=== PATIENT | male | born 1935 | race Caucasian/White ===

== ENCOUNTER 2017-11-06 19:51 | Observation (INO) | payer BC, MEDICARE ==
[~2017-11-06] VITALS: Ht 177.8 cm; Wt 108.0 kg
[~2017-11-06 19:51] MED LIST: ASPI81 PO; CENTTAB9 PO; CHEL50TA PO; COQ-100C5 PO; MISC1TAB9 PO; NIAC500T18 PO; PRIL20CA PO; SIMV20TA PO; TOPR50TA PO; VITA400C28 PO
[2017-11-06 19:56] VITALS: BP 126/72; PULSE 82; RESP 16; TEMP 98.1; O2SAT 97
[2017-11-06] MEDS ORDERED: OMEP20TA93 PO (20:07)
[2017-11-06] MEDS ORDERED: CENTCHW4 CHEW (20:07)
[2017-11-06] MEDS ORDERED: GLUC1TAB44 (20:07)
[2017-11-06] MEDS ORDERED: METO25TA3 PO (20:07)
[2017-11-06] MEDS ORDERED: CO Q100C9 (20:07)
[2017-11-06] MEDS ORDERED: OMEGCAP PO (20:07)
[2017-11-06] MEDS ORDERED: ATOR40TA16 PO (20:07)
[2017-11-06] MEDS ORDERED: ZINC30TA PO (20:07)
[2017-11-06] MEDS ORDERED: ASPI-516 CHEW (20:07)
[2017-11-06] MEDS ORDERED: METOPROLOL TARTRATE 25 MG TAB PO ONE (20:15)
[2017-11-06] MEDS ORDERED: SODIUM CHLORID 0.9% 500 ML INJ 500 ML IV ONE (20:15)
[2017-11-06] MEDS ORDERED: ACETAMINOPHEN 325 MG TAB PO ONE (20:15)
[2017-11-06 20:50] LABS: AUTOMATED NEUTROPHIL # 8.7 TH/MM3 (1.8-7.7); BASOPHIL % 0.2 % (0.0-2.0); EOSINOPHIL # 0.2 TH/MM3 (0-0.4); EOSINOPHIL % 2.3 % (0.0-4.0); HEMATOCRIT 46.2 % (39.0-51.0); LYMPH % 6.3 % (9.0-44.0); LYMPHOCYTE # 0.6 TH/MM3 (1.0-4.8); MEAN CELL VOLUME 84.6 FL (80.0-100.0); MEAN CORPUSCULAR HEMOGLOBIN 29.3 PG (27.0-34.0); MEAN CORPUSCULAR HGB CONC 34.6 % (32.0-36.0); MONO % 5.6 % (0.0-8.0); MONOCYTE # 0.6 TH/MM3 (0-0.9); NEUT % 85.6 % (16.0-70.0); PLATELET COUNT 176 TH/MM3 (150-450); RED BLOOD COUNT 5.47 MIL/MM3 (4.50-5.90); RED CELL DISTRIBUTION WIDTH 14.1 % (11.6-17.2); WHITE BLOOD COUNT 10.2 TH/MM3 (4.0-11.0)
[2017-11-06 21:00] VITALS: BP 107/61; PULSE 76; RESP 16; O2SAT 96
[2017-11-06] MEDS ORDERED: PANTOPRAZOLE SODIUM 40 MG VIAL IV PUSH ONE (21:00)
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
--- NOTE | 2017-11-06 21:26 | RADRPT ---
EXAM DATE/TIME: 11/06/2017 20:46 [place] COMPARISON: No previous studies available for comparison. INDICATIONS : Chest pain. MEDICAL HISTORY : None. SURGICAL HISTORY : None. ENCOUNTER: Initial ACUITY: 1 day PAIN SCORE: 1/10 LOCATION: Bilateral chest FINDINGS: A single view of the chest demonstrates minimal subsegmental basilar airspace disease. Cardiomegaly. No effusion. No pneumothorax. CONCLUSION: 1. Mild basilar airspace disease which may represent atelectasis. No effusion or pneumothorax. Lisandro Blood MD on November 06, 2017 at 21:23 Board Certified Radiologist. This report was verified electronically.
--- NOTE | 2017-11-06 21:40 | EKG ---
Date Performed: 11/06/2017 Time Performed: 19:58:41 PTAGE: 82 years EKG: Marked baseline artifact PROBABLE Normal Sinus rhythm LOW QRS VOLTAGE IN PRECORDIAL LEADS POSSIBLE ANTERIOR MYOCARDIAL INFARCTION INFERIOR MYOCARDIAL INFA RCTION ABNORMAL ECG Would repeat EKG. DOCTOR: Samuel Dennis Interpretating Date/Time 11/06/2017 21:39:26
[2017-11-06 21:54] LABS: ALBUMIN 3.6 GM/DL (3.4-5.0); ALT (GPT) 24 U/L (12-78); AST (GOT) 22 U/L (15-37); BICARBONATE 22.3 MEQ/L (21.0-32.0); BLOOD UREA NITROGEN 16 MG/DL (7-18); CALCIUM 8.3 MG/DL (8.5-10.1); CHLORIDE 107 MEQ/L (98-107); CREATININE 0.97 MG/DL (0.60-1.30); GLOMERULAR FILTRATION RATE 74 ML/MIN (>89); GLUCOSE,RANDOM 99 MG/DL (74-106); SODIUM (NA) 138 MEQ/L (136-145)
[2017-11-06 21:59] LABS: ALKALINE PHOSPHATASE 102 U/L (45-117); TOTAL BILIRUBIN ADULT 0.9 MG/DL (0.2-1.0); TOTAL PROTEIN 7.5 GM/DL (6.4-8.2); TROPONIN I LESS THAN 0.02 NG/ML (0.02-0.05)
[2017-11-06 23:00] VITALS: BP 108/59; PULSE 66; RESP 16; O2SAT 94
[2017-11-06] MEDS ORDERED: SODIUM CHLORIDE 0.9% FLUSH 10 ML FLUSH IV FLUSH PRN (23:00)
[2017-11-07] VITALS (11 sets, daily range): BP systolic 106–146; BP diastolic 56–67; PULSE 61–72; RESP 16–20; TEMP 98.2–98.6; O2SAT 93–98
[2017-11-07 02:39] LABS: TROPONIN I LESS THAN 0.02 NG/ML (0.02-0.05)
[2017-11-07 09:00] LABS: TROPONIN I LESS THAN 0.02 NG/ML (0.02-0.05)
[2017-11-07] MEDS ORDERED: SODIUM CHLORIDE 0.9% FLUSH 10 ML FLUSH IV FLUSH SCH (09:00)
--- NOTE | 2017-11-07 10:37 | EKG ---
Date Performed: 11/07/2017 Time Performed: 02:41:21 PTAGE: 82 years EKG: Sinus rhythm LOW QRS VOLTAGE IN PRECORDIAL LEADS POSSIBLE ANTERIOR MYOCARDIAL INFARCTION INFERIOR MYOCARDIAL INFA RCTION ABNORMAL ECG No significant change NO PREVIOUS TRACING DOCTOR: Ryan Barney Interpretating Date/Time 11/11/2017 07:05:29
[2017-11-07] MEDS ORDERED: SODIUM CHLOR 0.9% 1000 ML INJ 1,000 ML IV SCH (10:39)
--- NOTE | 2017-11-07 10:39 | EKG ---
Date Performed: 11/06/2017 Time Performed: 20:51:51 PTAGE: 82 years EKG: Sinus rhythm WITH OCCASIONAL VENTRICULAR PREMATURE COMPLEXES LOW QRS VOLTAGE IN PRECORDIAL LEADS POSSIBLE ANTERIO R MYOCARDIAL INFARCTION INFERIOR MYOCARDIAL INFARCTION ABNORMAL ECG No significant change other than loss of baseline artifact PREVIOUS TRACING : 11/09/2009 08.57 DOCTOR: Ryan Barney Interpretating Date/Time 11/07/2017 10:37:42
--- NOTE | 2017-11-07 10:51 | HHI.HP ---
HPI Primary Care Physician No Primary Care Physician Chief Complaint Chest pain History of Present Illness This is an 82-year-old male with history of CAD, hypertension, hyperlipidemia, and GERD that presents to ED with the complaint of chest discomfort. Patient states that he developed a heaviness in the center of his chest while doing some shopping with his . He was short of breath with some mild nausea. No diaphoresis. There is a 3 out of 10. It lasted about 4 hours. He was brought to the ED via [facility]. He was given sublingual nitroglycerin spray which helped a little bit but did not resolve the symptoms. States it is somewhat similar to when eating stents however this discomfort is nowhere near as intense. Patient also states that for the past week and a half he has had a yellowish color productive cough. No fever. No recent travel. He has not seen a local PCP for this. His internal combustion engine subassembler is Dr. Miguel Angel Soto. He has not discussed this with Dr. Miguel Angel Soto. States that he has had at least 8 watery bowel movements since being in the ED. This is actually his main concern at this time. States he is afraid to fall sleep, states the watery stool coming out when he is sleeping as well. Denies sick contacts. Denies blood in stool. 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 Review of Systems General: Patient denies fevers, chills, and recent travel. HEENT: Patient denies headache, sore throat, difficulty swallowing. Cardiovascular: Has the chest discomfort as mentioned above. Denies sensation of heart beating rapidly or irregularly. No syncope. Denies diaphoresis. Respiratory: Denies shortness of breath or inspirational chest discomfort. Denies coughing wheezing or hemoptysis. GI: Mild nausea yesterday. He has had multiple watery bowel movements since being in the ED last evening and this morning. Patient denies vomiting, abdominal pain, and bloody stools. Musculoskeletal: Patient denies joint pain or edema. Denies calf pain or edema. Neurovascular: Patient denies numbness, tingling, weakness in extremities. Denies headache. Endocrine: Denies polyuria and polydipsia. Hematologic: Denies easy bruising. Skin: Denies rash or itching. Past Family Social History Allergies: Coded Allergies: adenosine (Unverified Allergy, Severe, 11/06/17) ibuprofen (Unverified Allergy, Unknown, 11/06/17) Past Medical History CAD with stents. Hypertension, hyperlipidemia, and GERD. Past Surgical History Multiple cardiac catheterizations with stents in the past. No recent cardiac catheterization. Tonsillectomy. Reported Medications Reported Meds & Active Scripts Active Reported Osteo Bi-Flex Tablet (Glucosamine/D3/Boswellia Dorothy) 1,500 Mg-400 Unit-100 Mg Tablet Zinc Gluconate 30 Mg Tab 30 Mg PO DAILY [place]-3 Fish Oil/Vitamin (Fish Oil-Cholecalciferol) 1,000-1,000 Mg Cap 1 Cap PO DAILY Co Q 10 (Coenzyme Q10 (Ubidecarenone)) 100 Mg-5 Unit Cap Centrum (Multiple Vitamins W/ Minerals) 1 Chew 1 Tab CHEW DAILY Aspirin 81 Mg Chew 81 Mg CHEW DAILY Omeprazole 20 Mg Tab 20 Mg PO DAILY Metoprolol Tartrate 25 Mg Tab 25 Mg PO DAILY Atorvastatin (Atorvastatin Calcium) 40 Mg Tab 40 Mg PO HS Active Ordered Medications Current Medications Medications (Trade) Dose Ordered Sig/Abigail Route Start Time Stop Time Status Last Admin (NS Flush) 2 ml UNSCH PRN IV FLUSH 11/06/17 23:00 (NS Flush) 2 ml BID IV FLUSH 11/07/17 09:00 11/07/17 09:43 Sodium Chloride 1,000 ml @ 80 mls/hr [id number] IV 11/07/17 10:39 11/07/17 23:08 UNV Family History There is family history of CAD. Social History Quit smoking 40 years ago. Physical Exam Vital Signs Vital Signs Date Time Temp Pulse Resp B/P (MAP) Pulse Ox O2 Delivery O2 Flow Rate FiO2 11/07/17 08:34 72 18 142/67 (92) 96 Room Air 11/07/17 04:00 66 16 106/62 (77) 96 Room Air 11/07/17 02:00 68 16 108/60 (76) 96 Room Air 11/07/17 01:00 68 16 106/62 (77) 96 Room Air 11/06/17 23:44 21 11/06/17 23:00 66 16 108/59 (75) 94 Room Air 11/06/17 21:00 76 16 107/61 (76) 96 Room Air 11/06/17 19:56 98.1 82 16 126/72 (90) 97 Physical Exam GENERAL: This is a well-nourished, well-developed patient, in no apparent distress. Patient speaks in clear complete sentences. Patient is pleasant. HEENT: Head is atraumatic and normocephalic. Neck is supple without lymphadenopathy and trachea is midline. No JVD or carotid bruits. CARDIOVASCULAR: Regular rate and rhythm without murmurs, gallops, or rubs. RESPIRATORY: Mild expiratory wheeze on the right base. Clear to auscultation. Breath sounds equal bilaterally. No rales, or rhonchi. Chest wall is nontender. No use of accessory muscles. GASTROINTESTINAL: Some generalized abdominal tenderness but no guarding or rebound. Abdomen is nondistended. Abdomen soft. No obvious pulsatile mass or bruit. No CVA tenderness. Strong femoral pulses bilaterally. Normal bowel sounds in all quadrants. MUSCULOSKELETAL: Patient is moving upper and lower extremities freely. No calf tenderness or edema, no Homans sign. Strong pulses in upper and lower extremities. NEUROLOGICAL: Patient is alert and oriented. Cranial nerves 2-12 are grossly intact. No focal deficits and speech is clear. SKIN: No rash and turgor is normal. Laboratory Laboratory Tests Test 11/06/17 20:16 11/06/17 21:18 11/07/17 02:00 11/07/17 08:00 White Blood Count 10.2 Red Blood Count 5.47 Hemoglobin 16.0 Hematocrit 46.2 Mean Corpuscular Volume 84.6 Mean Corpuscular Hemoglobin 29.3 Mean Corpuscular Hemoglobin Concent 34.6 Red Cell Distribution Width 14.1 Platelet Count 176 Mean Platelet Volume 7.0 Neutrophils (%) (Auto) 85.6 Lymphocytes (%) (Auto) 6.3 Monocytes (%) (Auto) 5.6 Eosinophils (%) (Auto) 2.3 Basophils (%) (Auto) 0.2 Neutrophils # (Auto) 8.7 Lymphocytes # (Auto) 0.6 Monocytes # (Auto) 0.6 Eosinophils # (Auto) 0.2 Basophils # (Auto) 0.0 CBC Comment DIFF FINAL Differential Comment Blood Urea Nitrogen 16 Creatinine 0.97 Random Glucose 99 Total Protein 7.5 Albumin 3.6 Calcium Level 8.3 Magnesium Level 2.0 Alkaline Phosphatase 102 Aspartate Amino Transf (AST/SGOT) 22 Alanine Aminotransferase (ALT/SGPT) 24 Total Bilirubin 0.9 Sodium Level 138 Potassium Level 4.5 4.2 Chloride Level 107 Carbon Dioxide Level 22.3 Anion Gap 9 Estimat Glomerular Filtration Rate 74 Total Creatine Kinase 102 78 77 Creatine Kinase MB 1.7 Troponin I LESS THAN 0.02 LESS THAN 0.02 LESS THAN 0.02 Lipase 112 Result Diagram: 11/06/17201511/07/17 0800 Imaging Last 48 hours Impressions Chest X-Ray 11/06/172010 Signed Impressions: Service Date/Time: Monday, November 06, 2017 20:46 - CONCLUSION: 1. Mild basilar airspace disease which may represent atelectasis. No effusion or pneumothorax. Lisandro Blood MD Course EKGs are sinus rhythm without significant ST segment depressions or elevations. Caprini VTE Risk Assessment Caprini VTE Risk Assessment: Mod/High Risk (score >= 2) Caprini Risk Assessment Model Point Value = 1 Point Value = 2 Point Value = 3 Point Value = 5 Age 41-60 Minor surgery BMI > 25 kg/m2 Swollen legs Varicose veins or History of unexplained or recurrent spontaneous Oral contraceptives or hormone replacement Sepsis (< 1 month) Serious lung disease, including pneumonia (< 1 month) Abnormal pulmonary function Acute myocardial infarction Congestive heart failure (< 1 month) History of inflammatory bowel disease Medical patient at bed rest Age 61-74 Arthroscopic surgery Major open surgery (> 45 min) Laparoscopic surgery (> 45 min) Malignancy Confined to bed (> 72 hours) Immobilizing plaster cast Central venous access Age >= 75 History of VTE Family history of VTE Factor V Leiden Prothrombin [id number] Lupus anticoagulant Anticardiolipin antibodies Elevated serum homocysteine Heparin-induced thrombocytopenia Other congenital or acquired thrombophilia Stroke (< 1 month) Elective arthroplasty Hip, pelvis, or leg fracture Acute spinal cord injury (< 1 month) Prophylaxis Regimen Total Risk Factor Score Risk Level Prophylaxis Regimen 0-1 Low Early ambulation 2 Moderate Order ONE of the following: *Sequential Compression Device (SCD) *Heparin 5000 units SQ BID 3-4 Higher Order ONE of the following medications: *Heparin 5000 units SQ TID *Enoxaparin/Lovenox 40 mg SQ daily (WT < 150 kg, CrCl > 30 mL/min) *Enoxaparin/Lovenox 30 mg SQ daily (WT < 150 kg, CrCl > 10-29 mL/min) *Enoxaparin/Lovenox 30 mg SQ BID (WT < 150 kg, CrCl > 30 mL/min) AND/OR *Sequential Compression Device (SCD) 5 or more Highest Order ONE of the following medications: *Heparin 5000 units SQ TID (Preferred with Epidurals) *Enoxaparin/Lovenox 40 mg SQ daily (WT < 150 kg, CrCl > 30 mL/min) *Enoxaparin/Lovenox 30 mg SQ daily (WT < 150 kg, CrCl > 10-29 mL/min) *Enoxaparin/Lovenox 30 mg SQ BID (WT < 150 kg, CrCl > 30 mL/min) AND *Sequential Compression Device (SCD) Assessment and Plan Assessment and Plan * Chest pain: Patient has had serial cardiac enzymes and EKGs for ruling out purposes. He was seen by Dr. Barney at this time. Patient's main complaint at this time is actually diarrhea. He has had 8-10 watery bowel movements and has even had episodes of stool incontinence. Patient will need to be admitted for his uncontrollable diarrhea and if further cardiac evaluation is warranted his internal combustion engine subassembler Dr. Miguel Angel Soto could be consulted. * Diarrhea: Patient has had uncontrollable diarrhea. We will check for Hemoccult stool and also C. difficile. Further evaluation per admitting team. I have spoken with Dr. Delacruz. He has requested consultation be placed into Dr. Miguel Angel Soto. * Hypertension: Continue medication. * Hyperlipidemia: Continue medication. Patient is agreeable to this plan. Jarred Wheeler Nov 07, 2017 10:51
--- NOTE | 2017-11-07 10:53 | PD.CARD.PN ---
Subjective Subjective Remarks 82-year-old gentleman with a known history of coronary artery disease having had 3 stents placed in the right coronary artery in the distant past in 1989 [id number]. This was carried out in [place]. He is followed routinely by Dr. Soto locally with exercise stress test done on a yearly basis. 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 He is having 8-10 watery bowel movements a day including fecal incontinence. He is wearing a diaper and afraid to go to sleep because he is incontinent when he does. He also has some slight nausea with this and a diffuse sense of prostration. He has had a cough and some bronchitis over the last 2 weeks but no prior GI issues. Objective Medications Current Medications Medications (Trade) Dose Ordered Sig/Abigail Route Start Time Stop Time Status Last Admin (NS Flush) 2 ml UNSCH PRN IV FLUSH 11/06/17 23:00 (NS Flush) 2 ml BID IV FLUSH 11/07/17 09:00 11/07/17 09:43 Sodium Chloride 1,000 ml @ 80 mls/hr [id number] IV 11/07/17 10:39 11/07/17 23:08 UNV Vital Signs / I&O Vital Signs Date Time Temp Pulse Resp B/P (MAP) Pulse Ox O2 Delivery O2 Flow Rate FiO2 11/07/17 08:34 72 18 142/67 (92) 96 Room Air 11/07/17 04:00 66 16 106/62 (77) 96 Room Air 11/07/17 02:00 68 16 108/60 (76) 96 Room Air 11/07/17 01:00 68 16 106/62 (77) 96 Room Air 11/06/17 23:44 21 11/06/17 23:00 66 16 108/59 (75) 94 Room Air 11/06/17 21:00 76 16 107/61 (76) 96 Room Air 11/06/17 19:56 98.1 82 16 126/72 (90) 97 I/O 11/06/17 11/06/17 11/06/17 11/07/1722/18 3/22/18 06:59 14:59 22:59 06:59 14:59 22:59 Intake Total 500 ml Balance 500 ml Intake IV Total 500 ml Physical Exam Skin turgor appears to be diminished There is no JVD Chest reveals mild bibasilar crackles but no wheezes or rhonchi Cardiac rhythm appears to be regular no gallop rub or murmurs noted heart sounds are distant The abdomen is soft nontender with no guarding or rebound Laboratory Laboratory Tests Test 11/06/17 20:16 11/06/17 21:18 11/07/17 02:00 11/07/17 08:00 White Blood Count 10.2 TH/MM3 Red Blood Count 5.47 MIL/MM3 Hemoglobin 16.0 GM/DL Hematocrit 46.2 % Mean Corpuscular Volume 84.6 FL Mean Corpuscular Hemoglobin 29.3 PG Mean Corpuscular Hemoglobin Concent 34.6 % Red Cell Distribution Width 14.1 % Platelet Count 176 TH/MM3 Mean Platelet Volume 7.0 FL Neutrophils (%) (Auto) 85.6 % Lymphocytes (%) (Auto) 6.3 % Monocytes (%) (Auto) 5.6 % Eosinophils (%) (Auto) 2.3 % Basophils (%) (Auto) 0.2 % Neutrophils # (Auto) 8.7 TH/MM3 Lymphocytes # (Auto) 0.6 TH/MM3 Monocytes # (Auto) 0.6 TH/MM3 Eosinophils # (Auto) 0.2 TH/MM3 Basophils # (Auto) 0.0 TH/MM3 CBC Comment DIFF FINAL Differential Comment Blood Urea Nitrogen 16 MG/DL Creatinine 0.97 MG/DL Random Glucose 99 MG/DL Total Protein 7.5 GM/DL Albumin 3.6 GM/DL Calcium Level 8.3 MG/DL Magnesium Level 2.0 MG/DL Alkaline Phosphatase 102 U/L Aspartate Amino Transf (AST/SGOT) 22 U/L Alanine Aminotransferase (ALT/SGPT) 24 U/L Total Bilirubin 0.9 MG/DL Sodium Level 138 MEQ/L Potassium Level 4.5 MEQ/L 4.2 MEQ/L Chloride Level 107 MEQ/L Carbon Dioxide Level 22.3 MEQ/L Anion Gap 9 MEQ/L Estimat Glomerular Filtration Rate 74 ML/MIN Total Creatine Kinase 102 U/L 78 U/L 77 U/L Creatine Kinase MB 1.7 NG/ML Troponin I LESS THAN 0.02 NG/ML LESS THAN 0.02 NG/ML LESS THAN 0.02 NG/ML Lipase 112 U/L Imaging Last 24 hours Impressions Chest X-Ray 11/06/172010 Signed Impressions: Service Date/Time: Monday, November 06, 2017 20:46 - CONCLUSION: 1. Mild basilar airspace disease which may represent atelectasis. No effusion or pneumothorax. Lisandro Blood MD Assessment and Plan Assessment and Plan This gentleman has a history of coronary disease and presents with chest pain but does reveal acute problem at this time is profuse watery diarrhea with incontinence and a sense of debility probably stemming from dehydration. His hemoglobin is16.0 GM/DL suggesting some concentration. Further cardiac evaluation cannot be carried out at this time until he is stable and he cannot be discharged in current state therefore he will be admitted to [facility] for further evaluation and probable consultation to Dr. Miguel Angel Soto. Once he is stable from his diarrhea Dr. Soto can opine on the need for any additional evaluation. Code Status Full code Discussed Condition With I discussed the situation with PA and with the patient Ryan Barney MD Nov 07, 2017 10:53
[2017-11-07] MEDS ORDERED: DIPHENOXYLATE/ATROPINE 2.5 MG/0.025 MG TAB PO PRN (11:00)
[2017-11-07 11:59] LABS: BICARBONATE 15.6 MEQ/L (21.0-32.0); CALCIUM 8.5 MG/DL (8.5-10.1); CREATININE 1.19 MG/DL (0.60-1.30)
[2017-11-07] MEDS ORDERED: METOPROLOL TARTRATE 25 MG TAB PO SCH (12:00)
[2017-11-07] MEDS: PANTOPRAZOLE SOD 20 MG DELAYED RELEASE TAB PO SCH (12:04)
[2017-11-07] MEDS: ASPIRIN 81 MG CHEW TAB CHEW SCH (12:04)
[2017-11-07] MEDS ORDERED: SENNOSIDES 8.6 MG TAB PO PRN (12:15)
[2017-11-07] MEDS ORDERED: oxyCODONE/ACETAMINOPHEN 10 MG/325 MG TAB PO PRN (12:15)
[2017-11-07] MEDS ORDERED: oxyCODONE/ACETAMINOPHEN 5 MG/325 MG TAB PO PRN (12:15)
[2017-11-07] MEDS ORDERED: NALOXONE HCL 0.4 MG/ML AMP IV PUSH PRN (12:15)
[2017-11-07] MEDS ORDERED: ACETAMINOPHEN 325 MG TAB PO PRN ×2 (12:15)
[2017-11-07] MEDS ORDERED: SODIUM CHLORIDE 0.9% FLUSH 10 ML FLUSH IV FLUSH PRN (12:15)
[2017-11-07] MEDS ORDERED: ONDANSETRON HCL 4 MG/2 ML VIAL IVP PRN (12:15)
[2017-11-07] MEDS ORDERED: BISACODYL 10 MG SUPP RECTAL PRN (12:15)
[2017-11-07] MEDS ORDERED: TEMAZEPAM 15 MG CAP PO PRN (12:15)
[2017-11-07] MEDS ORDERED: MORPHINE SULFATE 2 MG/ML INJ IV PUSH PRN ×3 (12:15)
[2017-11-07] MEDS ORDERED: MAGNESIUM HYDROXIDE SUSP 30 ML CUP PO PRN (12:15)
[2017-11-07] MEDS ORDERED: LOPERAMIDE HCL 2 MG CAP PO PRN (12:15)
[2017-11-07] MEDS ORDERED: LACTULOSE SYRUP 20 GM/30 ML CUP PO PRN (12:15)
--- NOTE | 2017-11-07 12:16 | HHI.PR ---
Subjective Remarks This is an 82-year-old male with history of CAD, hypertension, hyperlipidemia, and GERD that presents to ED with the complaint of chest discomfort. Patient states that he developed a heaviness in the center of his chest while doing some shopping with his . He was short of breath with some mild nausea. No diaphoresis. There is a 3 out of 10. It lasted about 4 hours. He was brought to the ED via [facility]. He was given sublingual nitroglycerin spray which helped a little bit but did not resolve the symptoms. States it is somewhat similar to when eating stents however this discomfort is nowhere near as intense. Patient also states that for the past week and a half he has had a yellowish color productive cough. No fever. No recent travel. He has not seen a local PCP for this. His hydrography teacher is Dr. Miguel Angel Soto. He has not discussed this with Dr. Miguel Angel Soto. States that he has had at least 8 watery bowel movements since being in the ED. This is actually his main concern at this time. States he is afraid to fall sleep, states the watery stool coming out when he is sleeping as well. Denies sick contacts. Denies blood in stool. 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 11-07 patient has been transferred to our service Having profuse watery diarrhea States he is living at a hotel and eating in their dining room for breakfast States the diarrhea started earlier this morning Has had some cough and congestion recently Does not have a primary care physician in the area locally his brother sees Dr. ERAZO His hydrography teacher is Dr. Miguel Angel Soto Objective Vitals Vital Signs Date Time Temp Pulse Resp B/P (MAP) Pulse Ox O2 Delivery O2 Flow Rate FiO2 11/07/17 08:34 72 18 142/67 (92) 96 Room Air 11/07/17 04:00 66 16 106/62 (77) 96 Room Air 11/07/17 02:00 68 16 108/60 (76) 96 Room Air 11/07/17 01:00 68 16 106/62 (77) 96 Room Air 11/06/17 23:44 21 11/06/17 23:00 66 16 108/59 (75) 94 Room Air 11/06/17 21:00 76 16 107/61 (76) 96 Room Air 11/06/17 19:56 98.1 82 16 126/72 (90) 97 I/O 11/06/17 11/06/17 11/06/17 11/07/17 11/07/17 11/07/17 07:00 15:00 23:00 07:00 15:00 23:00 Intake Total 500 ml Balance 500 ml Intake IV Total 500 ml Result Diagram: 11/06/17201511/07/17 0800 Other Results Laboratory Tests Test 11/06/17 20:16 11/06/17 21:18 11/07/17 02:00 11/07/17 08:00 White Blood Count 10.2 TH/MM3 Red Blood Count 5.47 MIL/MM3 Hemoglobin 16.0 GM/DL Hematocrit 46.2 % Mean Corpuscular Volume 84.6 FL Mean Corpuscular Hemoglobin 29.3 PG Mean Corpuscular Hemoglobin Concent 34.6 % Red Cell Distribution Width 14.1 % Platelet Count 176 TH/MM3 Mean Platelet Volume 7.0 FL Neutrophils (%) (Auto) 85.6 % Lymphocytes (%) (Auto) 6.3 % Monocytes (%) (Auto) 5.6 % Eosinophils (%) (Auto) 2.3 % Basophils (%) (Auto) 0.2 % Neutrophils # (Auto) 8.7 TH/MM3 Lymphocytes # (Auto) 0.6 TH/MM3 Monocytes # (Auto) 0.6 TH/MM3 Eosinophils # (Auto) 0.2 TH/MM3 Basophils # (Auto) 0.0 TH/MM3 CBC Comment DIFF FINAL Differential Comment Blood Urea Nitrogen 16 MG/DL Creatinine 0.97 MG/DL Random Glucose 99 MG/DL Total Protein 7.5 GM/DL Albumin 3.6 GM/DL Calcium Level 8.3 MG/DL Magnesium Level 2.0 MG/DL Alkaline Phosphatase 102 U/L Aspartate Amino Transf (AST/SGOT) 22 U/L Alanine Aminotransferase (ALT/SGPT) 24 U/L Total Bilirubin 0.9 MG/DL Sodium Level 138 MEQ/L Potassium Level 4.5 MEQ/L 4.2 MEQ/L Chloride Level 107 MEQ/L Carbon Dioxide Level 22.3 MEQ/L Anion Gap 9 MEQ/L Estimat Glomerular Filtration Rate 74 ML/MIN Total Creatine Kinase 102 U/L 78 U/L 77 U/L Creatine Kinase MB 1.7 NG/ML Troponin I LESS THAN 0.02 NG/ML LESS THAN 0.02 NG/ML LESS THAN 0.02 NG/ML Lipase 112 U/L Imaging Last Impressions Chest X-Ray 11/06/172010 Signed Impressions: Service Date/Time: Monday, November 06, 2017 20:46 - CONCLUSION: 1. Mild basilar airspace disease which may represent atelectasis. No effusion or pneumothorax. Lisandro Blood MD Objective Remarks GENERAL: Awake alert and oriented 3 -talkative and cooperative -appears to be in some moderate distress SKIN: Warm and dry. HEAD: Atraumatic. Normocephalic. EYES: Pupils equal and round. No scleral icterus. No injection or drainage. Extraocular muscles intact ENT: No nasal bleeding or discharge. Mucous membranes pink and moist. Tongue is midline NECK: Trachea midline. No JVD. Supple CARDIOVASCULAR: Regular rate and rhythm. S1-S2 no S3 or S4 RESPIRATORY: No accessory muscle use. Clear to auscultation. Breath sounds equal bilaterally. Mild crackles at bases GASTROINTESTINAL: Abdomen soft, non-tender, nondistended. Hepatic and splenic margins not palpable. MUSCULOSKELETAL: Extremities without clubbing, cyanosis, or edema. No obvious deformities. NEUROLOGICAL: Awake and alert. No obvious cranial nerve deficits. Motor grossly within normal limits. 4 out of 5 muscle strength in the arms and legs. Normal speech. PSYCHIATRIC: Appropriate mood and affect; insight and judgment normal. Medications and IVs Current Medications Sodium Chloride 500 ml @ 500 mls/hr BOLUS ONCE IV Last administered on at 20:18; Start 11/06/17 at 20:15; Stop 11/06/17 at 21:14; Status DC Acetaminophen (Tylenol) 975 mg ONCE ONCE PO Last administered on 11/06/17at 20: 18; Start 11/06/17 at 20:15; Stop 11/06/17 at 20:16; Status DC Metoprolol Tartrate (Lopressor) 12.5 mg ONCE ONCE PO Last administered on 11/06at 20:18; Start 11/06/17 at 20:15; Stop 11/06/17 at 20:16; Status DC Pantoprazole Sodium (Protonix Inj) 40 mg ONCE ONCE IV PUSH Last administered on 11/06/17at 21:32; Start 3/21/18 at 21:00; Stop 11/06/17 at 21:06; Status DC Sodium Chloride (NS Flush) 2 ml UNSCH PRN IV FLUSH FLUSH AFTER USING IV ACCESS ; Start 11/06/17 at 23:00 Sodium Chloride (NS Flush) 2 ml BID IV FLUSH Last administered on 11/07/17at 09: 43; Start 11/07/17 at 09:00 Sodium Chloride 1,000 ml @ 80 mls/hr [id number] IV ; Start 11/07/17 at 10:39; Stop 11/07/17 at 23:08 Aspirin (Aspirin Chew) 81 mg DAILY CHEW ; Start 11/07/17 at 12:00 Atorvastatin Calcium (Lipitor) 40 mg HS PO ; Start 11/07/17 at 21:00 Metoprolol Tartrate (Lopressor) 25 mg DAILY PO ; Start 11/07/17 at 12:00 Pantoprazole Sodium (Protonix) 20 mg DAILY PO ; Start 11/07/17 at 12:00 Diphenoxylate HCl/ Atropine (Lomotil Tab) 1 tab Q6H PRN PO DIARRHEA; Start at 11:00 A/P Problem List: (1) Diarrhea ICD Code: R19.7 - Diarrhea, unspecified (2) Chest pain ICD Code: R07.9 - Chest pain, unspecified Status: Acute (3) GERD (gastroesophageal reflux disease) ICD Code: K21.9 - Gastro-esophageal reflux disease without esophagitis (4) Coronary artery disease ICD Code: I25.10 - Atherosclerotic heart disease of [place] coronary artery without angina pectoris (5) Hypercholesterolemia ICD Code: E78.00 - Pure hypercholesterolemia, unspecified (6) History of shingles ICD Code: Z86.19 - Personal history of other infectious and parasitic diseases Assessment and Plan Chest pain: Patient has had serial cardiac enzymes and EKGs for ruling out purposes. He was seen by Dr. Barney at this time. Patient's main complaint at this time is actually diarrhea. He has had 8-10 watery bowel movements and has even had episodes of stool incontinence. Patient will need to be admitted for his uncontrollable diarrhea and if further cardiac evaluation is warranted his hydrography teacher Dr. Miguel Angel Soto could be consulted. Will consult Dr. Miguel Angel Soto after discussion with chest pain unit History of coronary artery disease Diarrhea: Patient has had uncontrollable diarrhea. We will check for Hemoccult stool and also C. difficile. Further evaluation per admitting team has been deferred to us for admission. stool for enteric pathogen Hypertension: Continue medication. Hyperlipidemia: Continue medication. Debility PT and OT to eval and treat Case management consult Discharge Planning Pending cardiac clearance Problem Qualifiers (1) Chest pain: Qualified Codes: R07.9 - Chest pain, unspecified Johnathan Wang DO Nov 07, 2017 12:16
[2017-11-07] MEDS: LACTOBACILLUS ACIDOPHILUS TAB PO SCH ×2 (13:03→18:03)
--- NOTE | 2017-11-07 17:08 | ECHRPT ---
Indication: CHEST PAIN CONCLUSIONS Moderately dilated left ventricle. Wall thickness is normal. The left ventricular systolic function is severely reduced with an estimated ejection fraction in th e range of 30%. Aortic valve sclerosis is present. There is mild tricuspid valve regurgitation. The estimated pulmonary arterial pressure is 36 mmHg. BP: / HR: Rhythm: MEASUREMENTS (Male / Female) Normal Values Technical Quality: 2D ECHO LV Diastolic Diameter PLAX 5.3 cm 4.2 - 5.9 / 3.9 - 5.3 cm LV Systolic Diameter PLAX 4.5 cm IVS Diastolic Thickness 1.0 cm 0.6 - 1.0 / 0.6 - 0.9 cm LVPW Diastolic Thickness 0.8 cm 0.6 - 1.0 / 0.6 - 0.9 cm LV Relative Wall Thickness 0.3 M-MODE Aortic Root Diameter MM 3.6 cm AV Cusp Separation MM 1.9 cm DOPPLER Mitral E Point Velocity 59.2 cm/s Mitral A Point Velocity 97.7 cm/s Mitral E to A Ratio 0.6 TR Peak Velocity 253.0 cm/s TR Peak Gradient 25.6 mmHg Right Atrial Pressure 10.0 mmHg Pulmonary Artery Systolic Pressu 35.6 mmHg Right Ventricular Systolic Press 35.6 mmHg FINDINGS LEFT VENTRICLE Moderately dilated left ventricle. Wall thickness is normal. The left ventricular systolic function is severely reduced with an estimated ejection fraction in th e range of 30%. RIGHT VENTRICLE Normal right ventricular size and systolic function. LEFT ATRIUM The left atrial size is normal. RIGHT ATRIUM The right atrial size is normal. ATRIAL SEPTUM Normal atrial septal thickness without atrial level shunting by limited color doppler interrogation. AORTA The aortic root and proximal ascending aorta are normal in size on limited imaging. MITRAL VALVE Structurally normal mitral valve. No mitral valve stenosis or regurgitation. AORTIC VALVE Aortic valve sclerosis is present. TRICUSPID VALVE There is mild tricuspid valve regurgitation. The estimated pulmonary arterial pressure is 36 mmHg. PULMONARY VALVE No pulmonary valve regurgitation or stenosis. VESSELS The inferior vena cava is normal in size. PERICARDIUM No pericardial effusion. Faustino St MD, FACC, [facility] [place] (Electronically Signed) Final Date:07 November 2017 17:07
[2017-11-07 18:32] LABS: BILIRUBIN, URINE NEG (NEG); BLOOD, URINE TRACE (NEG); GLUCOSE,URINE NEG (NEG); KETONE, URINE NEG (NEG); MUCUS URINE FEW /lpf (OCC); NITRITE,URINE NEG (NEG); PH, URINE 5.5 (5.0-8.5); URINE COLOR YELLOW (YELLW/STRAW); URINE LEUKOCYTE ESTERASE NEG (NEG)
--- NOTE | 2017-11-07 20:25 | MB ---
cc: Miguel Angel Soto MD DATE: 11/07/2017 REASON FOR CONSULTATION: Evaluation of chest pain. HISTORY OF PRESENT ILLNESS: Janes Barrios is an 82-year-old man who is previously known to me. He had a previous inferior wall myocardial infarction and underwent stenting of his right coronary artery in 1998. In 2005, he had stenting of the left anterior descending artery proximally with a 3.0 x 18 mm Xience stent. He has been followed clinically with a history of a previous Jennings-Jayesh reaction from an adenosine nuclear stress test so he has been followed with just regular clinical ETTs. His last ETT was positive for EKG changes in stage III, but not associated with any angina, so we have been continuing medical management. He was out shopping with his yesterday and developed substernal chest pressure. He was not short of breath. It did not radiate. I asked him how long it lasted and he said about 3-4 hours. He sat down after it started. He also developed an onset yesterday of severe watery diarrhea which is still ongoing. He came in febrile. He has had no chest pain since yesterday. 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 PAST SURGICAL HISTORY: Includes appendectomy, previous cardiac catheterization, cholecystectomy, previous stents as described above. MEDICATIONS PRIOR TO ADMISSION: 1. Aspirin 81 mg. 2. Atorvastatin 40 mg. 3. Omeprazole. 4. Toprol-XL 25 mg 1/2 tablet daily. ALLERGIES: INCLUDE ADENOSINE AND MOTRIN. FAMILY HISTORY: Positive for CHF in the father, myocardial infarction in a grandmother. SOCIAL HISTORY: Notable for smoking from age 18 to age 42. He worked previously as a teacher. PHYSICAL EXAMINATION: GENERAL: Shows a well-developed, well-nourished man. He is alert and oriented. VITAL SIGNS: Charted. HEENT: Unremarkable. NECK: No JVD. No bruits. CHEST: Clear to auscultation. HEART: S1, S2. Regular rate and rhythm. No murmurs, rubs or gallops. ABDOMEN: Soft. EXTREMITIES: Reveal no peripheral edema. Pulses are intact. DIAGNOSTIC STUDIES: EKG shows sinus rhythm with an old inferior [place]. One of them shows artifact with no rhythm change. Laboratory work shows a white count of 10,200; platelet count 176,000; hematocrit 46.2. BUN 23 and creatinine 1.19. Troponins negative x 3. Chest x-ray shows possible atelectasis. IMPRESSION: Prolonged anginal episode without any definitive objective evidence of ischemia. He has a severe diarrheal illness going on at the present time. We are not able to get a nuclear stress test to assess him because of previous Jennings-Jayesh syndrome. RECOMMENDATIONS: I want to be conservative at this point in the setting of uncontrollable diarrhea. There is currently no objective evidence for ischemia. The findings on his echo are quite concerning. We will need to compare that old echo. He will at some point likely need a cardiac catheterization. Further therapy to be determined. MD ODELL Simmons/NAYANA , 08:04 PM , 08:25 PM
[2017-11-07] MEDS: DOCUSATE SODIUM 50 MG/SENNA 8.6 MG TAB PO SCH (21:00)
[2017-11-07] MEDS: SODIUM CHLORIDE 0.9% FLUSH 10 ML FLUSH IV FLUSH SCH (21:00)
[2017-11-07] MEDS: ATORVASTATIN 40 MG TAB PO SCH (23:22)
[2017-11-07] MEDS: METOPROLOL TARTRATE 25 MG TAB PO SCH (23:23)
[2017-11-07] MEDS: NITROGLYCERIN 2% OINT 1 GM PACKET TOPICAL SCH (23:28)
[2017-11-08] VITALS (9 sets, daily range): BP systolic 93–147; BP diastolic 54–72; PULSE 58–75; RESP 16–18; TEMP 97.2–98.4; O2SAT 94–97
[2017-11-08] MEDS: NITROGLYCERIN 2% OINT 1 GM PACKET TOPICAL SCH ×4 (08:45→18:00)
[2017-11-08] MEDS: METOPROLOL TARTRATE 25 MG TAB PO SCH ×2 (09:00→21:40)
[2017-11-08] MEDS ORDERED: NON-FORMULARY DRUG (Fish Oil-Cholecalciferol (Omega-3 Fish Oil/Vitamin) 1 CAP) PO SCH (09:00)
[2017-11-08] MEDS ORDERED: ZINC GLUCONATE 30 MG PO SCH (09:00)
[2017-11-08] MEDS ORDERED: ZINC SULFATE 220 MG CAP PO SCH (09:00)
[2017-11-08] MEDS: DOCUSATE SODIUM 50 MG/SENNA 8.6 MG TAB PO SCH ×2 (09:00→21:00)
[2017-11-08] MEDS: MULTIVITAMINS/MINERALS THERAPEUTIC TAB PO SCH (09:12)
[2017-11-08] MEDS: PANTOPRAZOLE SOD 20 MG DELAYED RELEASE TAB PO SCH (09:13)
[2017-11-08] MEDS: LACTOBACILLUS ACIDOPHILUS TAB PO SCH ×3 (09:13→18:04)
[2017-11-08] MEDS: ASPIRIN 81 MG CHEW TAB CHEW SCH (09:13)
[2017-11-08] MEDS: SODIUM CHLORIDE 0.9% FLUSH 10 ML FLUSH IV FLUSH SCH ×2 (09:14→21:40)
[2017-11-08] MEDS ORDERED: SODIUM CHLOR 0.9% 1000 ML INJ 1,000 ML IV SCH (09:15)
[2017-11-08] MEDS ORDERED: ONDANSETRON HCL 4 MG/2 ML VIAL IV PUSH PRN (09:15)
[2017-11-08] MEDS ORDERED: oxyCODONE/ACETAMINOPHEN 5 MG/325 MG TAB PO PRN (09:15)
[2017-11-08] MEDS ORDERED: ATROPINE SULFATE 1 MG/ML VIAL IV PUSH PRN (09:15)
[2017-11-08] MEDS ORDERED: BACITRACIN OINT 0.9 GM PKT TOP ONE (10:00)
[2017-11-08 10:56] LABS: AUTOMATED NEUTROPHIL # 4.1 TH/MM3 (1.8-7.7); BASOPHIL # 0.1 TH/MM3 (0-0.2); BASOPHIL % 0.8 % (0.0-2.0); EOSINOPHIL % 0.3 % (0.0-4.0); HEMATOCRIT 40.5 % (39.0-51.0); HEMOGLOBIN 14.1 GM/DL (13.0-17.0); LYMPH % 25.5 % (9.0-44.0); LYMPHOCYTE # 1.7 TH/MM3 (1.0-4.8); MEAN CELL VOLUME 83.4 FL (80.0-100.0); MEAN CORPUSCULAR HGB CONC 34.8 % (32.0-36.0); MEAN PLATELET VOLUME 6.9 FL (7.0-11.0); MONO % 10.6 % (0.0-8.0); MONOCYTE # 0.7 TH/MM3 (0-0.9); NEUT % 62.8 % (16.0-70.0); PLATELET COUNT 144 TH/MM3 (150-450); RED BLOOD COUNT 4.86 MIL/MM3 (4.50-5.90); WHITE BLOOD COUNT 6.6 TH/MM3 (4.0-11.0)
[2017-11-08 11:27] LABS: ALBUMIN 3.3 GM/DL (3.4-5.0); ALT (GPT) 21 U/L (12-78); AST (GOT) 24 U/L (15-37); BICARBONATE 24.3 MEQ/L (21.0-32.0); BLOOD UREA NITROGEN 20 MG/DL (7-18); CALCIUM 8.1 MG/DL (8.5-10.1); CHLORIDE 102 MEQ/L (98-107); CREATININE 0.91 MG/DL (0.60-1.30); GLOMERULAR FILTRATION RATE 80 ML/MIN (>89); GLUCOSE,RANDOM 71 MG/DL (74-106); MAGNESIUM 1.9 MG/DL (1.5-2.5); PHOSPHORUS 2.5 MG/DL (2.5-4.9); SODIUM (NA) 134 MEQ/L (136-145)
[2017-11-08 11:35] LABS: ALKALINE PHOSPHATASE 85 U/L (45-117); FREE T4 1.22 NG/DL (0.76-1.46); TOTAL BILIRUBIN ADULT 0.9 MG/DL (0.2-1.0); TOTAL PROTEIN 7.2 GM/DL (6.4-8.2)
--- NOTE | 2017-11-08 16:58 | HHI.PR ---
Subjective Remarks Pt tells me he is feeling weak. Had two loose stools today, small amounts. He did notify RN of those and stools samples have been done. Pt denies any CP/SOB/N/V. States he has a poor appetite. feels gassy Objective Vitals Vital Signs Date Time Temp Pulse Resp B/P (MAP) Pulse Ox O2 Delivery O2 Flow Rate FiO2 11/08/17 15:04 75 11/08/17 13:38 97.4 62 18 121/72 (88) 96 11/08/17 11:00 70 11/08/17 09:05 97.8 67 18 102/59 (73) 94 11/08/17 07:04 59 11/08/17 03:28 98.4 58 16 93/54 (67) 94 11/07/17 23:44 98.2 67 18 120/57 (78) 93 11/07/17 20:39 97 11/07/17 20:30 98.3 61 17 122/59 (80) 97 I/O 11/07/17 11/07/17 11/07/17 11/08/17 11/08/17 11/08/17 07:00 15:00 23:00 07:00 15:00 23:00 # Voids 1 # Bowel Movements 2 Result Diagram: 11/08/17 0939 11/08/1739 Imaging Last Impressions Chest X-Ray 11/06/172010 Signed Impressions: Service Date/Time: Monday, November 06, 2017 20:46 - CONCLUSION: 1. Mild basilar airspace disease which may represent atelectasis. No effusion or pneumothorax. Lisandro Blood MD Objective Remarks GENERAL: laying in bed CARDIOVASCULAR: Regular rate and rhythm. RESPIRATORY: No accessory muscle use. Clear to auscultation. Breath sounds equal bilaterally. GASTROINTESTINAL: Abdomen soft, non-tender, nondistended. MUSCULOSKELETAL: Extremities without edema. No obvious deformities. NEUROLOGICAL: Awake and alert. Motor grossly within normal limits. Normal speech. PSYCHIATRIC: Appropriate mood and affect; insight and judgment normal. A/P Problem List: (1) Diarrhea ICD Code: R19.7 - Diarrhea, unspecified (2) Chest pain ICD Code: R07.9 - Chest pain, unspecified Status: Acute (3) GERD (gastroesophageal reflux disease) ICD Code: K21.9 - Gastro-esophageal reflux disease without esophagitis (4) Coronary artery disease ICD Code: I25.10 - Atherosclerotic heart disease of [place] coronary artery without angina pectoris (5) Hypercholesterolemia ICD Code: E78.00 - Pure hypercholesterolemia, unspecified (6) History of shingles ICD Code: Z86.19 - Personal history of other infectious and parasitic diseases Assessment and Plan History of coronary artery disease/Chest pain: Patient has had serial cardiac enzymes and EKGs for ruling out purposes. Apparently he had 8-10 watery bowel movements yesterday and now has [address] episodes [address] today[address] Miguel Angel Soto evaluated the pt and is concerned about her ECHO results and pt will need a cardiac cath however w the current diarrhea will hold off. Diarrhea: C. difficile and stool for enteric pathogen/cultures pending Hypertension: Continue medication. Hyperlipidemia: Continue medication. Debility PT and OT to eval and treat Discharge Planning f/u C. Diff and Stool cx. f/u cards recs Problem Qualifiers (1) Chest pain: Qualified Codes: R07.9 - Chest pain, unspecified Isabelle Hamilton MD Nov 08, 2017 16:58
--- NOTE | 2017-11-08 17:05 | PD.CARD.PN ---
Subjective Subjective Remarks Still doesn't feel well but no angina Objective Medications Current Medications Medications (Trade) Dose Ordered Sig/Abigail Route Start Time Stop Time Status Last Admin (Aspirin Chew) 81 mg DAILY CHEW 11/07/17 12:00 11/08/17 09:13 (Lipitor) 40 mg HS PO 11/07/17 21:00 11/07/17 23:22 (Protonix) 20 mg DAILY PO 11/07/17 12:00 11/08/17 09:13 (Lomotil Tab) 1 tab Q6H PRN PO 11/07/17 11:00 (Theragran M Tab) 1 tab DAILY PO 11/08/17 09:00 11/08/17 09:12 (Lactinex) 1 tab TID PO 11/07/17 13:00 11/08/17 12:53 (NS Flush) 2 ml UNSCH PRN IV FLUSH 11/07/17 12:15 (NS Flush) 2 ml BID IV FLUSH 11/07/17 21:00 11/08/17 09:14 (Tylenol) 650 mg Q4H PRN PO 11/07/17 12:15 (Zofran Inj) 4 mg Q6H PRN IVP 11/07/17 12:15 (Restoril) 15 mg HS PRN PO 11/07/17 12:15 (Tylenol) 650 mg Q6H PRN PO 11/07/17 12:15 (Percocet 5-325 Mg) 1 tab Q6H PRN PO 11/07/17 12:15 (Percocet 10-325 Mg) 1 tab Q6H PRN PO 11/07/17 12:15 (Morphine Inj) 2 mg Q3H PRN IV PUSH 11/07/17 12:15 (Morphine Inj) 4 mg Q3H PRN IV PUSH 11/07/17 12:15 (Morphine Inj) 4 mg Q3H PRN IV PUSH 11/07/17 12:15 (Narcan Inj) 0.4 mg UNSCH PRN IV PUSH 11/07/17 12:15 (Kasandra-Colace) 1 tab BID PO 11/07/17 21:00 (Milk Of Magnesia Liq) 30 ml Q12H PRN PO 11/07/17 12:15 (Senokot) 17.2 mg Q12H PRN PO 11/07/17 12:15 (Dulcolax Supp) 10 mg DAILY PRN RECTAL 11/07/17 12:15 (Lactulose Liq) 30 ml DAILY PRN PO 11/07/17 12:15 (Imodium) 2 mg Q6H PRN PO 11/07/17 12:15 11/07/17 13:03 (Lopressor) 25 mg BID PO 11/07/17 21:00 11/07/17 23:23 (Nitroglycerin 2% Oint) 0.5 inch Q6HR TOPICAL 11/07/17 20:15 11/08/17 08:45 Vital Signs / I&O Vital Signs Date Time Temp Pulse Resp B/P (MAP) Pulse Ox O2 Delivery O2 Flow Rate FiO2 11/08/17 15:04 75 11/08/17 13:38 97.4 62 18 121/72 (88) 96 11/08/17 11:00 70 11/08/17 09:05 97.8 67 18 102/59 (73) 94 11/08/17 07:04 59 11/08/17 03:28 98.4 58 16 93/54 (67) 94 11/07/17 23:44 98.2 67 18 120/57 (78) 93 11/07/17 20:39 97 11/07/17 20:30 98.3 61 17 122/59 (80) 97 I/O 11/07/17 11/07/17 11/07/17 11/08/17 11/08/17 11/08/17 07:00 15:00 23:00 07:00 15:00 23:00 # Voids 1 # Bowel Movements 2 Physical Exam Alert Chest few rhonchi CV S1S2 RRR Abd soft Ext no CCE Laboratory Laboratory Tests Test 11/07/17 17:15 11/08/17 09:39 11/08/17 14:30 Urine Color YELLOW Urine Turbidity CLEAR Urine pH 5.5 Urine Specific [place] 1.024 Urine Protein TRACE mg/dL Urine Glucose (UA) NEG mg/dL Urine Ketones NEG mg/dL Urine Occult Blood TRACE Urine Nitrite NEG Urine Bilirubin NEG Urine Urobilinogen LESS THAN 2.0 MG/DL Urine Leukocyte Esterase NEG Urine RBC 7 /hpf Urine WBC 1 /hpf Urine Mucus FEW /lpf Microscopic Urinalysis Comment CULT NOT INDICATED White Blood Count 6.6 TH/MM3 Red Blood Count 4.86 MIL/MM3 Hemoglobin 14.1 GM/DL Hematocrit 40.5 % Mean Corpuscular Volume 83.4 FL Mean Corpuscular Hemoglobin 29.0 PG Mean Corpuscular Hemoglobin Concent 34.8 % Red Cell Distribution Width 14.0 % Platelet Count 144 TH/MM3 Mean Platelet Volume 6.9 FL Neutrophils (%) (Auto) 62.8 % Lymphocytes (%) (Auto) 25.5 % Monocytes (%) (Auto) 10.6 % Eosinophils (%) (Auto) 0.3 % Basophils (%) (Auto) 0.8 % Neutrophils # (Auto) 4.1 TH/MM3 Lymphocytes # (Auto) 1.7 TH/MM3 Monocytes # (Auto) 0.7 TH/MM3 Eosinophils # (Auto) 0.0 TH/MM3 Basophils # (Auto) 0.1 TH/MM3 CBC Comment DIFF FINAL Differential Comment Blood Urea Nitrogen 20 MG/DL Creatinine 0.91 MG/DL Random Glucose 71 MG/DL Total Protein 7.2 GM/DL Albumin 3.3 GM/DL Calcium Level 8.1 MG/DL Phosphorus Level 2.5 MG/DL Magnesium Level 1.9 MG/DL Alkaline Phosphatase 85 U/L Aspartate Amino Transf (AST/SGOT) 24 U/L Alanine Aminotransferase (ALT/SGPT) 21 U/L Total Bilirubin 0.9 MG/DL Sodium Level 134 MEQ/L Potassium Level 4.0 MEQ/L Chloride Level 102 MEQ/L Carbon Dioxide Level 24.3 MEQ/L Anion Gap 8 MEQ/L Estimat Glomerular Filtration Rate 80 ML/MIN Free Thyroxine 1.22 NG/DL Thyroid Stimulating Hormone 3rd Gen 0.904 uIU/ML Assessment and Plan Problem List: (1) Coronary artery disease ICD Codes: I25.10 - Atherosclerotic heart disease of [place] coronary artery without angina pectoris Plan: I looked at recent echo. EF looks closer to 40% (2) Diarrhea ICD Codes: R19.7 - Diarrhea, unspecified (3) Chest pain ICD Codes: R07.9 - Chest pain, unspecified Status: Acute Plan: Resolved. No recurrence. No evidence of [place] Assessment and Plan I have decided not to cath him this admit as long as he remains stable. Will plan cath after has had a chance to recover from present diarrheal illness. Dr. Navarrete solar installation foreman/ available prn. Problem Qualifiers (1) Chest pain: Qualified Codes: R07.9 - Chest pain, unspecified Miguel Angel Soto MD Nov 08, 2017 17:05
[2017-11-08] MEDS ORDERED: NITROGLYCERIN 2% OINT 1 GM PACKET TOPICAL PRN (18:15)
[2017-11-08] MEDS: ATORVASTATIN 40 MG TAB PO SCH (21:41)
[2017-11-08 22:01] LABS: HEMOGLOBIN A1C 5.4 % (4.3-6.0)
[2017-11-09] VITALS (9 sets, daily range): BP systolic 106–121; BP diastolic 56–72; PULSE 51–68; RESP 18; TEMP 96.6–98.2; O2SAT 95–98
[2017-11-09] MEDS: ASPIRIN 81 MG CHEW TAB CHEW SCH (09:26)
[2017-11-09] MEDS: DOCUSATE SODIUM 50 MG/SENNA 8.6 MG TAB PO SCH ×2 (09:26→21:00)
[2017-11-09] MEDS: SODIUM CHLORIDE 0.9% FLUSH 10 ML FLUSH IV FLUSH SCH (09:26)
[2017-11-09] MEDS: PANTOPRAZOLE SOD 20 MG DELAYED RELEASE TAB PO SCH (09:26)
[2017-11-09] MEDS: LACTOBACILLUS ACIDOPHILUS TAB PO SCH ×3 (09:26→18:45)
[2017-11-09] MEDS: METOPROLOL TARTRATE 25 MG TAB PO SCH (09:26)
[2017-11-09] MEDS: MULTIVITAMINS/MINERALS THERAPEUTIC TAB PO SCH (09:26)
[2017-11-09 11:18] LABS: BICARBONATE 25.8 MEQ/L (21.0-32.0); CALCIUM 8.2 MG/DL (8.5-10.1); CREATININE 0.85 MG/DL (0.60-1.30)
--- NOTE | 2017-11-09 12:35 | EKG ---
Date Performed: 11/07/2017 Time Performed: 07:57:35 PTAGE: 82 years EKG: Sinus rhythm INFERIOR MYOCARDIAL INFARCTION ABNORMAL ECG No significant change PREVIOUS TRACING : 11/07/2017 02.41 DOCTOR: Ryan Barney Interpretating Date/Time 11/09/2017 12:34:01
--- NOTE | 2017-11-09 15:05 | HHI.PR ---
Subjective Remarks Pt feeling better today. Had one episode of loose stools today. Doesn't have a PCP here as he is from [place]. Tolerating clears. No nausea or vomiting, no chest pain, SOB Objective Vitals Vital Signs Date Time Temp Pulse Resp B/P (MAP) Pulse Ox O2 Delivery O2 Flow Rate FiO2 11/09/17 12:53 97.4 55 18 118/72 (87) 96 11/09/17 08:57 97.6 54 18 106/59 (75) 97 11/09/17 04:58 54 11/09/17 03:08 98.2 52 18 113/58 (76) 96 11/09/17 00:55 98.0 68 18 121/68 (85) 96 11/09/17 00:14 59 11/08/17 20:03 71 11/08/17 19:44 98.2 66 18 147/68 (94) 97 11/08/17 18:03 97.2 63 18 121/63 (82) 97 11/08/17 15:04 75 I/O 11/08/17 11/08/17 11/08/17 11/09/17 11/09/17 11/09/17 07:00 15:00 23:00 07:00 15:00 23:00 # Bowel Movements 2 Result Diagram: 11/08/17 0939 11/09/17 1012 Imaging Last Impressions Chest X-Ray 11/06/172010 Signed Impressions: Service Date/Time: Monday, November 06, 2017 20:46 - CONCLUSION: 1. Mild basilar airspace disease which may represent atelectasis. No effusion or pneumothorax. Lisandro Blood MD Objective Remarks GENERAL: laying in bed, appears tired CARDIOVASCULAR: Regular rate and rhythm. RESPIRATORY: No accessory muscle use. Clear to auscultation. Breath sounds equal bilaterally. GASTROINTESTINAL: Abdomen soft, non-tender, nondistended. MUSCULOSKELETAL: Extremities without edema. No obvious deformities. NEUROLOGICAL: Awake and alert. Motor grossly within normal limits. Normal speech. PSYCHIATRIC: Appropriate mood and affect; insight and judgment normal. A/P Problem List: (1) Diarrhea ICD Code: R19.7 - Diarrhea, unspecified (2) Chest pain ICD Code: R07.9 - Chest pain, unspecified Status: Acute (3) GERD (gastroesophageal reflux disease) ICD Code: K21.9 - Gastro-esophageal reflux disease without esophagitis (4) Coronary artery disease ICD Code: I25.10 - Atherosclerotic heart disease of [place] coronary artery without angina pectoris (5) Hypercholesterolemia ICD Code: E78.00 - Pure hypercholesterolemia, unspecified (6) History of shingles ICD Code: Z86.19 - Personal history of other infectious and parasitic diseases Assessment and Plan History of coronary artery disease/Chest pain: Patient has had serial cardiac enzymes and EKGs for ruling out purposes. Apparently he had 8-10 watery bowel movements 2 days ago and now has 2 episodes yesterday, today he had one so far and was watery but feels better. Dr. Miguel Angel Soto evaluated the pt and is concerned about her ECHO results however will delay cardiac cath and to no perform it during this admission due to diarrheal illness. Stool cx + for rotavirus and others are still pending. Will f/u stool cx. I encouraged pt to establish w PCP here. Diarrhea: C. difficile neg, +rotavirus and stool for enteric pathogen neg. Other stool studies pending. Hypertension: Continue medication. Hyperlipidemia: Continue medication. Debility PT recommends wheeled walker and home health PT Discharge Planning f/u Stool studies. Anticipate d/c tomorrow. advance diet to heart healthy Problem Qualifiers (1) Chest pain: Qualified Codes: R07.9 - Chest pain, unspecified Isabelle Hamilton MD Nov 09, 2017 15:05
[2017-11-10] MEDS: METOPROLOL TARTRATE 25 MG TAB PO SCH ×2 (00:15→09:48)
[2017-11-10] MEDS: SODIUM CHLORIDE 0.9% FLUSH 10 ML FLUSH IV FLUSH SCH ×2 (00:15→09:47)
[2017-11-10] MEDS: ATORVASTATIN 40 MG TAB PO SCH (00:15)
[2017-11-10 00:44] VITALS: BP 147/89; PULSE 89; RESP 18; TEMP 98.1; O2SAT 96
[2017-11-10 03:54] VITALS: BP 139/65; PULSE 89; RESP 18; TEMP 98.1; O2SAT 96
[2017-11-10 07:06] LABS: BICARBONATE 27.9 MEQ/L (21.0-32.0); CALCIUM 8.2 MG/DL (8.5-10.1); CREATININE 0.83 MG/DL (0.60-1.30)
[2017-11-10 09:12] VITALS: BP 124/56; PULSE 54; RESP 20; TEMP 98.2; O2SAT 96
[2017-11-10] MEDS: LACTOBACILLUS ACIDOPHILUS TAB PO SCH ×2 (09:47→12:39)
[2017-11-10] MEDS: ASPIRIN 81 MG CHEW TAB CHEW SCH (09:48)
[2017-11-10] MEDS: DOCUSATE SODIUM 50 MG/SENNA 8.6 MG TAB PO SCH (09:48)
[2017-11-10] MEDS: MULTIVITAMINS/MINERALS THERAPEUTIC TAB PO SCH (09:48)
[2017-11-10] MEDS: PANTOPRAZOLE SOD 20 MG DELAYED RELEASE TAB PO SCH (09:48)
[2017-11-10] MEDS ORDERED: LACT PO (12:20)
[2017-11-10] MEDS ORDERED: METO25TA3 PO (12:20)
--- NOTE | 2017-11-10 12:22 | HHI.DS ---
Discharge Summary Admission Date Nov 06, 2017 at 22:26 Discharge Date: Nov 10, 2017 Admitting Diagnosis CP Hx stents (1) Diarrhea ICD Code: R19.7 - Diarrhea, unspecified (2) Chest pain ICD Code: R07.9 - Chest pain, unspecified Status: Acute (3) GERD (gastroesophageal reflux disease) ICD Code: K21.9 - Gastro-esophageal reflux disease without esophagitis (4) Coronary artery disease ICD Code: I25.10 - Atherosclerotic heart disease of [place] coronary artery without angina pectoris (5) Hypercholesterolemia ICD Code: E78.00 - Pure hypercholesterolemia, unspecified (6) History of shingles ICD Code: Z86.19 - Personal history of other infectious and parasitic diseases Procedures none Brief History - From Admission This is an 82-year-old male with history of CAD, hypertension, hyperlipidemia, and GERD that presents to ED with the complaint of chest discomfort. Patient states that he developed a heaviness in the center of his chest while doing some shopping with his . He was short of breath with some mild nausea. No diaphoresis. There is a 3 out of 10. It lasted about 4 hours. He was brought to the ED via [facility]. He was given sublingual nitroglycerin spray which helped a little bit but did not resolve the symptoms. States it is somewhat similar to when eating stents however this discomfort is nowhere near as intense. Patient also states that for the past week and a half he has had a yellowish color productive cough. No fever. No recent travel. He has not seen a local PCP for this. His fulfillment representative is Dr. Miguel Angel Soto. He has not discussed this with Dr. Miguel Angel Soto. States that he has had at least 8 watery bowel movements since being in the ED. This is actually his main concern at this time. States he is afraid to fall sleep, states the watery stool coming out when he is sleeping as well. Denies sick contacts. Denies blood in stool. 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 CBC/BMP: 11/08/17 0939 11/10/17 0534 Significant Findings Laboratory Tests Test 11/07/17 17:15 11/08/17 09:39 11/08/17 14:30 11/09/17 10:12 Urine Occult Blood TRACE (NEG) Urine RBC 7 /hpf (0-3) Urine Mucus FEW /lpf (OCC) Platelet Count 144 TH/MM3 (150-450) Mean Platelet Volume 6.9 FL (7.0-11.0) Monocytes (%) (Auto) 10.6 % (0.0-8.0) Blood Urea Nitrogen 20 MG/DL (7-18) Random Glucose 71 MG/DL (74-106) Albumin 3.3 GM/DL (3.4-5.0) Calcium Level 8.1 MG/DL (8.5-10.1) 8.2 MG/DL (8.5-10.1) Sodium Level 134 MEQ/L (136-145) Estimat Glomerular Filtration Rate 80 ML/MIN (>89) 87 ML/MIN (>89) Test 11/10/17 05:34 Calcium Level 8.2 MG/DL (8.5-10.1) Imaging Last Impressions Chest X-Ray 11/06/172010 Signed Impressions: Service Date/Time: Monday, November 06, 2017 20:46 - CONCLUSION: 1. Mild basilar airspace disease which may represent atelectasis. No effusion or pneumothorax. Lisandro Blood MD PE at Discharge GENERAL: laying in bed, appears tired CARDIOVASCULAR: Regular rate and rhythm. RESPIRATORY: No accessory muscle use. Clear to auscultation. Breath sounds equal bilaterally. GASTROINTESTINAL: Abdomen soft, non-tender, nondistended. MUSCULOSKELETAL: Extremities without edema. No obvious deformities. NEUROLOGICAL: Awake and alert. Motor grossly within normal limits. Normal speech. PSYCHIATRIC: Appropriate mood and affect; insight and judgment normal. Pt update on day of discharge Pt feeling a lot better. No diarrhea today. Would like to go home. No abdominal pain, no chest pains, no SOB. As far a BM's, yesterday only had one that he can remember Hospital Course History of coronary artery disease/Chest pain: Patient has had serial cardiac enzymes which were neg. while in the hosp, pt started to have multiple episodes of diarrhea. He was neg for C. Diff but pos of rotavirus. Pt progressively got better and today feels a lot better and has had no BMs. Dr. Miguel Angel Soto evaluated the pt and is concerned about his ECHO results however will delay cardiac cath and decided not to perform it during this admission due to diarrheal illness. Stool cx + for rotavirus and others are still pending. I encouraged pt to establish w PCP here. Since pt is clinically stable and no longer has diarrhea, I will go ahead and discharge him, I have requested that our [facility] RN, follow up on the stool studies which thus far have been neg except for the + rotavirus. I did call microbiology lab and those will be available on saturday. We will notify pt of any abnormal results on saturday. Pt is clinically doing much better. I will d/c him today f/u w PCP (pt will establish w a PCP in the community) and cards as an outpatient Pt Condition on Discharge: Good Discharge Disposition: Discharge Home Discharge Time: > 30 minutes Discharge Instructions DIET: Follow Instructions for: Heart Healthy Diet Activities you can perform: See Additionl Instruction Other Activity Instructions: no strenuous activity for 3 days Follow up Referrals: Cardiology - 1 Week with Miguel Angel Soto MD PCP Follow-up - 1 Week New Medications: Lactobacillus Acidophilus (Acidophilus/l-Sporogenes) 35 Million Cell-25 Million Cell Tab 1 TAB PO TID, #30 TAB Metoprolol Tartrate (Metoprolol Tartrate) 25 Mg Tab 25 MG PO BID, #60 TAB Continued Medications: Aspirin (Aspirin) 81 Mg Chew 81 MG CHEW DAILY, TAB 0 Refills Atorvastatin (Atorvastatin) 40 Mg Tab 40 MG PO HS for Cholesterol Management, #30 TAB 0 Refills Coenzyme Q10 (Ubidecarenone) (Co Q 10) 100 Mg-5 Unit Cap Fish Oil-Cholecalciferol ([place]-3 Fish Oil/Vitamin) 1,000-1,000 Mg Cap 1 CAP PO DAILY for Nutritional Supplement, CAP 0 Refills Glucosamine/D3/Boswellia Dorothy (Osteo Bi-Flex Tablet) 1,500 Mg-400 Unit-100 Mg Tablet Multiple Vitamins W/ Minerals (Centrum) 1 Chew 1 TAB CHEW DAILY for Nutritional Supplement, TAB 0 Refills Omeprazole (Omeprazole) 20 Mg Tab 20 MG PO DAILY, #30 TAB 0 Refills Zinc Gluconate (Zinc Gluconate) 30 Mg Tab 30 MG PO DAILY for Nutritional Supplement, TAB 0 Refills Discontinued Medications: Metoprolol Tartrate (Metoprolol Tartrate) 25 Mg Tab 25 MG PO DAILY, #30 TAB 0 Refills Isabelle Hamilton MD Nov 10, 2017 12:22
[2017-11-10 12:33] VITALS: BP 122/60; PULSE 60; RESP 18; TEMP 96.8; O2SAT 96
== END 2017-11-10 16:42 | disposition home or self-care (01) ==
LOC: NEPE 19:51 → NEDA 22:26 → NEDH 11-07 02:10 → NEPFCDU 11-07 12:52
PROVIDERS: ADMIT Hospitalist; ATTEND Hospitalist
DX: R07.89 Other chest pain (principal); R19.7 Diarrhea, unspecified; R06.02 Shortness of breath; R11.0 Nausea; I25.10 Atherosclerotic heart disease of native coronary artery without angina pectoris; I10 Essential (primary) hypertension; M79.7 Fibromyalgia; K21.9 Gastro-esophageal reflux disease without esophagitis; E78.00 Pure hypercholesterolemia, unspecified; I49.3 Ventricular premature depolarization; R94.31 Abnormal electrocardiogram [ECG] [EKG]; I25.2 Old myocardial infarction; J40 Bronchitis, not specified as acute or chronic; J45.909 Unspecified asthma, uncomplicated; R73.03 Prediabetes; Z95.5 Presence of coronary angioplasty implant and graft; Z79.899 Other long term (current) drug therapy; Z79.82 Long term (current) use of aspirin; Z87.891 Personal history of nicotine dependence
CPT/HCPCS: 71045; 80048; 80053; 81001; 82272; 82550; 82552; 83036; 83690; 83735; 84100; 84132; 84439; 84443; 84484; 85025; 87205; 87207; 87328; 87329; 87425; 87493; 87506; 93005; 93306; 96361; 96374; 97162; 97165; 99285; C9113; G0378; G8987; G8988; J7030; J7040